=== PATIENT | female | born 1955 | race Caucasian/White ===

== ENCOUNTER 2021-05-23 11:33 | Emergency (ER) | payer OTHER ==
[~2021-05-23] VITALS: Ht 175.3 cm; Wt 181.4 kg
[~2021-05-23 11:33] MED LIST: ALBUTEROL2.5 MG/3 M INH; ASPIR 8181 MG PO; AUGMENTIN 875-1 EACH PO; CONTRAVE ER 8-1 EACH PO; DOK100 MG PO; EFFEXOR XR37.5 MG PO; EPIDIOLEX100 MG/1 M SL; FOLIC ACID 1 MG1 MG PO; HUMALOG100 UNIT/3 SQ; LANTUS SOL100 UNIT/1 SQ; LISINOPRIL-HCT1 EAC1 PO; SYNTHROID175 MCG PO; TRULICITY0.75 MG/0. SQ; VITAMIN D21250 MCG PO
[2021-05-23 14:09] LABS: RED BLOOD COUNT 2.4 M/UL (4.00-5.10)
[2021-05-23 14:13] LABS: HEMOGLOBIN 4.7 gm/dl (12.3-15.3); WHITE BLOOD COUNT 43.5 K/UL (4.5-11.0)
[2021-05-24 00:17] LABS: ACINETOBACTER BAUMANNII Not Detected (Negative); CANDIDA ALBICANS Not Detected (Negative); CANDIDA KRUSEI Not Detected (Negative); CANDIDA TROPICALIS Not Detected (Negative); ENTEROCOCCUS Not Detected (Negative); ESCHERICHIA COLI Not Detected (Negative); HAEMOPHILUS INFLUENZAE Not Detected (Negative); KLEBSIELLA OXYTOCA Not Detected (Negative); KLEBSIELLA PNEUMONIAE Not Detected (Negative); KPC-CARBAPENEM-RESISTANCE GENE Not Detected (Negative); PROTEUS Not Detected (Negative); PSEUDOMONAS AERUGINOSA Not Detected (Negative); SERRATIA MARCESANS Not Detected (Negative); STAPHYLOCOCCUS Not Detected (Negative); STAPHYLOCOCCUS AUREUS Not Detected (Negative); STREP AGALACTIAE (GROUP B) Not Detected (Negative); STREP PYOGENES (GROUP A) Not Detected (Negative); mecA (METHICILLIN RESIST GENE Not Detected (Negative); vanA/B (VANCOMYCIN RESIST GENE Not Detected (Negative)
[2021-05-24 02:51] LABS: STREPTOCOCCUS DETECTED (Negative)
[2021-05-24 03:40] LABS: HEMOGLOBIN 6.6 gm/dl (12.3-15.3)
[2021-05-24 06:46] LABS: RED BLOOD COUNT 2.9 M/UL (4.00-5.10); WHITE BLOOD COUNT 26.9 K/UL (4.5-11.0)
[2021-05-24 06:47] LABS: HEMOGLOBIN 6.7 gm/dl (12.3-15.3)
[2021-05-24 13:15] LABS: RED BLOOD COUNT 2.95 M/UL (4.00-5.10); WHITE BLOOD COUNT 26.2 K/UL (4.5-11.0)
[2021-05-24 13:17] LABS: HEMOGLOBIN 6.8 gm/dl (12.3-15.3)
[2021-05-25 08:00] LABS: RED BLOOD COUNT 3.12 M/UL (4.00-5.10); WHITE BLOOD COUNT 25.2 K/UL (4.5-11.0)
[2021-05-26 06:20] LABS: HEMOGLOBIN 7.8 gm/dl (12.3-15.3); RED BLOOD COUNT 3.35 M/UL (4.00-5.10); WHITE BLOOD COUNT 29.9 K/UL (4.5-11.0)
== END 2021-05-27 06:30 ==
LOC: ER1 11:33
PROVIDERS: Emergency Medicine; Family Medicine; Internal Medicine
DX: U07.1 COVID-19 (principal); K92.2 Gastrointestinal hemorrhage, unspecified; D72.829 Elevated white blood cell count, unspecified; D75.839 Thrombocytosis, unspecified; Z79.01 Long term (current) use of anticoagulants; D64.9 Anemia, unspecified; E11.9 Type 2 diabetes mellitus without complications; E66.01 Morbid (severe) obesity due to excess calories; J96.11 Chronic respiratory failure with hypoxia; I48.91 Unspecified atrial fibrillation
CPT/HCPCS: 36430; 36600; 51702; 71045; 80048; 80053; 81001; 82009; 82272; 82550; 82553; 82607; 82728; 82746; 82803; 82962; 83036; 83540; 83550; 83605; 83690; 83735; 83874; 83880; 84484; 85014; 85018; 85025; 85027; 85610; 85652; 86140; 86850; 86900; 86901; 86920; 87040; 87077; 87086; 87150; 87186; 93005; 94640; 94660; 94760; 96374; 96375; 96376; 99285; C9113; J0248; J0696; J1100; J1756; J2185; J2270; J3370; J7030; J7050; J7070; P9016; U0002

== ENCOUNTER → 2021-09-26 | Outpatient (CLI) | payer OTHER | LOC: KOH-I 09:35 | DX: M25.571 Pain in right ankle and joints of right foot (principal) | CPT/HCPCS: 73610; 73630 ==